=== PATIENT | female | born 1995 | race Caucasian/White ===

== ENCOUNTER 2017-06-04 20:50 | Emergency (ER) | payer SELFPAY ==
[2017-06-04 20:50] VITALS: BMI 33.5
[2017-06-04 21:43] VITALS: BP 107/72
[2017-06-04] MEDS ORDERED: Albuterol-Ipratrop 3 mg / 0.5 (3 ml) UD ONE (22:52)
--- NOTE | 2017-06-04 22:54 | C.PDOC ---
History Of Present Illness 22 year old female presents to the ED complaining of fever, cough, and vomiting , onset yesterday. Patient was seen at the clinic today and given tamiflu. States she developed difficulty breathing today which has worsened, so she came here for further treatment. Patient reports history of asthma but does not have any inhalers at home. Not taking Motrin/Tylenol at home. Of note patient is currently and also has had intermittent abdominal cramping, which is gone now. Denies any vaginal bleeding. Time Seen by Provider: 06/04/17 21:59 Chief Complaint (Nursing): Flu-like Symptoms History Per: Patient, Trapeze Performer (Angely, #[id number]) History/Exam Limitations: no limitations Onset/Duration Of Symptoms: Days (x2) Current Symptoms Are (Timing): Still Present Past Medical History Reviewed: Historical Data, Nursing Documentation, Vital Signs Vital Signs: Last Vital Signs Temp 99.5 F 06/05/17 00:30 Pulse 115 H 06/05/17 00:30 Resp 20 06/05/17 00:30 BP 107/72 06/04/17 21:41 Pulse Ox 98 06/05/17 01:23 - Medical History PMH: Asthma - [facility] Procedures DELIVERY OF PRODUCTS OF CONCEPTION, EXTERNAL APPROACH (03/06/15) REPAIR PERINEUM MUSCLE, OPEN APPROACH (03/06/15) Family History: States: No Known Family Hx - Social History Hx Alcohol Use: No Hx Substance Use: No Review Of Systems Constitutional: Positive for: Fever Respiratory: Positive for: Cough, Shortness of Breath, Wheezing Gastrointestinal: Positive for: Vomiting, Abdominal Pain Genitourinary: Negative for: Vaginal Bleeding Physical Exam - Physical Exam Appears: No Acute Distress Skin: No Rash Head: Atraumatic, Normacephalic Eye(s): bilateral: PERRL, EOMI Oral Mucosa: Moist Throat: Erythema (and tonsillar enlargement), No Exudate Neck: Supple Chest: No Tenderness Cardiovascular: Rhythm Regular Respiratory: Wheezing (bilateral expiratory wheezing), No Other (respiratory distress) Gastrointestinal/Abdominal: Soft, No Tenderness Back: No CVA Tenderness, No Vertebral Tenderness Extremity: No Tenderness, No Pedal Edema Neurological/Psych: Other (Alert, no focal deficits) ED Course And Treatment - Laboratory Results Result Diagrams: 06/04/17 23:30 06/04/17 23:30 O2 Sat by Pulse Oximetry: 98 (RA) Pulse Ox Interpretation: Normal Medical Decision Making Medical Decision Making: Ordered chest x-ray and flu swab. Patient given Tylenol 975 mg and Duoneb treatment. . 11:10 Labs reviewed, flu negative 115 am pt feeling better. potassium given. ?inflitrate in right lower lung; d/ c with albuterol mdi, tylenol. zithromax. Disposition Counseled Patient/Family Regarding: Studies Performed, Diagnosis, Need For Followup, Rx Given - Disposition Referrals: Ny Reynaga MD [Medical Doctor] - Disposition: HOME/ ROUTINE Disposition Time: 01:18 Condition: IMPROVED Additional Instructions: White Tylenol cada 4-6 horas para la fiebre o paul / achaques. Obtener term metro para verificar la temperatura. White Zithromax paige pastilla todos los sheikh corby los prximos 4 sheikh. White Tamiflu jordy prescrbied.Use inhalador 2 bocanadas cada 4-6 horas para respirar con dificultad. tos maegan Regrese a la megan de emergencias por cualquier sntoma peor. Errol un seguimiento con el Dr. Reynaga .Take Tylenol every 4-6 hours for fever or aches/pains. Get thermometer to check temperature. Take Zithromax one pill every day for next 4 days. Take Tamiflu as prescrbied.Use inhaler 2 puffs every 4-6 hours for wheezing. heavy cough. Return to ER for any worse symptoms. Follow up with Dr Reynaga on Thursday. Prescriptions: Acetaminophen [Tylenol 325mg tab] 650 mg PO Q6 #30 tab Albuterol HFA [Ventolin HFA 90 mcg/actuation (8 g)] 2 puff IH Q6 #1 inhaler Azithromycin [Zithromax] 250 mg PO DAILY #4 tab Instructions: Influenza (ED), Acute Bronchitis (ED), Wheezing (ED) Forms: [facility] (Maltese), Gen Discharge Inst Maltese Print Language: DUTCH - Clinical Impression Clinical Impression: Influenza-like illness, Bronchitis - PA / TYPING ELEMENT MACHINE OPERATOR / Resident Statement MD/DO has reviewed & agrees with the documentation as recorded. - Scribe Statement The provider has reviewed the documentation as recorded by the Scribe (Dori Hercules) All medical record entries made by the Scribe were at my direction and personally dictated by me. I have reviewed the chart and agree that the record accurately reflects my personal performance of the history, physical exam, medical decision making, and the department course for this patient. I have also personally directed, reviewed, and agree with the discharge instructions and disposition.
[2017-06-04] MEDS ORDERED: Albuterol-Ipratrop 3 mg / 0.5 (3 ml) UD INH STA (22:57)
[2017-06-04 23:36] LABS: BASO % 0.3 % (0.0-2.0); EOS % 0.1 % (0.0-4.0); HEMOGLOBIN 13.4 g/dL (11.0-16.0); LYMPH % 10.3 % (20.0-40.0); MEAN CELL VOLUME 90.4 fL (81.0-99.0); MEAN CORPUSCULAR HEMOGLOBIN 31.6 pg (27.0-31.0); MEAN CORPUSCULAR HGB CONC 34.9 g/dL (33.0-37.0); MEAN PLATELET VOLUME 9.2 fL (7.2-11.7); MONO # 0.6 K/uL (0.0-0.8); MONO % 5.8 % (0.0-10.0); NEUT # 8.2 K/uL (1.8-7.0); NEUT % 83.5 % (50.0-75.0); RBC 4.26 Mil/uL (3.80-5.20); RED CELL DISTRIBUTION WIDTH 12.9 % (11.5-14.5); WHITE BLOOD COUNT 9.9 K/uL (4.8-10.8)
[2017-06-04 23:39] LABS: SQUAMOUS EPITHIAL 23 /hpf (0-5); URINE BACTERIA RARE (<OCC); URINE BILIRUBIN NEGATIVE (NEGATIVE); URINE BLOOD NEGATIVE (NEGATIVE); URINE CLARITY Hazy (Clear); URINE COLOR Yellow (YELLOW); URINE GLUCOSE (UA) 1+ mg/dL (Normal); URINE LEUKOCYTE ESTERASE 1+ Leu/uL (Negative); URINE NITRATE NEGATIVE (NEGATIVE); URINE PROTEIN 1+ mg/dL (NEGATIVE); URINE UROBILINOGEN NORMAL mg/dL (0.2-1.0)
[2017-06-04 23:45] LABS: ALB/GLOB RATIO 1.1 (1.0-2.1); ALBUMIN 4.2 g/dL (3.5-5.0); ALT/SGPT 18 U/L (9-52); AST/SGOT 20 U/L (14-36); BLOOD UREA NITROGEN 6 mg/dL (7-17); CALCIUM 8.8 mg/dl (8.6-10.4); GFR AFRICAN-AMERICAN > 60; GFR NON-AFRICAN AMERICAN > 60
[2017-06-05 00:30] VITALS: PULSE 115; RESP 20; TEMP 99.5
[2017-06-05] MEDS ORDERED: Albuterol-Ipratrop 3 mg / 0.5 (3 ml) UD INH STA (00:37)
[2017-06-05] MEDS ORDERED: Albuterol-Ipratrop 3 mg / 0.5 (3 ml) UD ONE (00:39)
[2017-06-05 00:56] VITALS: O2SAT 98
[2017-06-05] MEDS ORDERED: Potassium Chloride 20 mEq/15 ml LIQ UD PO STA (00:56)
[2017-06-05] MEDS ORDERED: Potassium Chloride 20 mEq ER Tab PO ONE (01:04)
--- NOTE | 2017-06-05 08:20 | RAD ---
HISTORY: cough, fever COMPARISON: None available. TECHNIQUE: Chest PA and lateral FINDINGS: LUNGS: Patchy opacity at the right lung base consistent with pneumonia. PLEURA: No significant pleural effusion identified. No definite pneumothorax . CARDIOVASCULAR: The cardiomediastinal silhouette appears within normal limits of size. OSSEOUS STRUCTURES: No acute osseous abnormality identified. VISUALIZED UPPER ABDOMEN: Unremarkable. OTHER FINDINGS: None. IMPRESSION: Patchy opacity at the right lung base consistent with pneumonia. Study marked for PA review.
== END 2017-06-05 01:32 | disposition home or self-care (01) ==
LOC: C.ER 20:50
DX: J11.1 Influenza due to unidentified influenza virus with other respiratory manifestations (principal); E87.6 Hypokalemia

== ENCOUNTER 2017-11-05 12:35 | Emergency (ER) | payer MEDICAID, SELFPAY ==
--- NOTE | 2017-11-05 14:13 | OBHP ---
Datetime: 11/05/2017 14:03 IP Adm Impression: Term, intrauterine IP Admit Plan: Discharge home Admit Comment, IP Provider: 36 yo edc 11/18 by 1st trim us presents w/ c/o blood tinged mucosal d/c. States this is how she presented in her last preg when she had srom. No coitus x4mo's. Denies ct xs or decreased movement pnc in [facility] [place] [facility]: x1 pmhx: asthma pshx: denies nkda medic: albuterol tid; pnv i: 38.1wk no evidence of srom Scant dark blood at cervical os mixec w/ mucus p: labor precaut kick counts f/u w/ ob clinic within 1wk f.y w pcp for asthma management Pelvic Type - PN: Adequate Extremities - PN: Normal Abdomen - PN: Normal General - PN: Normal FHR - Baseline A Provider: 120 Membranes, Provider: Intact Comments, ACOG Physical Exam: +Qunatereron Pool Provider: Negative EGA AdmitDate IP: 38.1 Vital Signs Provider: Reviewed; Within Normal Limits IP Chief Complaint: Suspected ruptured membranes; Vaginal bleeding NICHD Variability Prov Fetus A: Moderate 6-25bpm NICHD Accel Fetus A IP Provider: 15X15 FHR Category Provider Fetus A: Category I NICHD Decel Fetus A IP Provider: None Dilatation, Provider: 0 Effacement, Provider: 0 Station, Provider: -3 Genitourinary Exam: Normal
[2017-11-06 13:26] VITALS: BP 108/76; PULSE 76
== END 2017-11-05 14:15 | disposition home or self-care (01) ==
LOC: C.EROB 12:35
DX: O26.893 Other specified pregnancy related conditions, third trimester (principal); Z3A.38 38 weeks gestation of pregnancy

== ENCOUNTER 2017-11-09 10:57 | Inpatient (IN) | payer MEDICAID, SELFPAY ==
--- NOTE | 2017-11-09 15:20 | OBHP ---
Datetime: 11/09/2017 12:50 IP Adm Impression: Term, intrauterine Admit Comment, IP Provider: CC: Contractions and lower abdominal pressure HPI: Patient was 22 year old female at 39.6 weeks with due date by LMP (11/10/17) and LMP d ate of 02/03/17, who presents to labor and delivery with complaint of contractions that started at 6p m last night. Contractions became stronger this morning, 5 minutes apart. Patient admits to mild vagi nal bleeding but denies leakage of fluid, chest pain, palpitations, headache, nauasea, vomiting, leg swelling, fevers or chills. Patient admits to movement. Prime Minister Hx: Menarche: 10 [place]: Regular/ 3-4days Denies hx of fibroid and ovarian cyst Denies hx of STDs and abnormal pap smear OB Hx: G1: Baby Boy, 03/06/2015, vaginal delivery, no complications, 8lbs 8 oz G2: Current, no complications PMHx: Denies PSHx: Denies FHx: denies Medication: vitamins Allergies: tobacco fumes, uses inhaler Social Hx: Lives with and son. Denies current or former use of tobacco, illicit drugs and ETOH VS: BP (100/70) HR: 94 PE: See above A/P: Patient was 22 year old female at 39.6 weeks with due date by LMP (11/10/17) and LMP date o f 02/03/17, who presents to labor and delivery with complaint of contractions: 1. Triage 2. Instructions to walk around for 2 hours and reevaluate cervical exams 3. Further management as per reevalautation of cervical exam Extremities - PN: Normal Abdomen - PN: Normal Lungs - PN: Normal Heart - PN: Normal HEENT - PN: Normal General - PN: Normal Comments, ACOG Physical Exam: Gen: NAD Cardio: RRR, no murmurs Pulm: CTA bilaterally Abdomeb: Soft, gravid Extremities: No edema, no cyanosis and no clubbing EFM: FHR: 120, + accels TOCO: Variable EGA AdmitDate IP: 39.6 IP Chief Complaint: Uterine contractions Dilatation, Provider: 2 Effacement, Provider: 50 Station, Provider: -2
[2017-11-09 15:50] VITALS: BMI 32.1
[2017-11-09] MEDS ORDERED: Lactated Ringer's 1,000 ML IV ONE (16:00)
--- NOTE | 2017-11-09 16:11 | OBADHP ---
Datetime: 11/09/2017 16:02 Admit Comment, IP Provider: Term in actve labor. Spontaneous Rupture of Membranes GBS Negative Unremarkable PNC Will admit for labor and Delivery Pelvic Type - PN: Adequate Extremities - PN: Normal Abdomen - PN: Normal Back - PN: Normal Breast - PN: Not Done Lungs - PN: Normal Heart - PN: Normal Thyroid - PN: Normal Neurologic - PN: Normal HEENT - PN: Normal General - PN: Normal Presentation-Admit: Vertex FHR - Baseline A Provider: 120 Amniotic Fluid Color, Provider: Clear Membranes, Provider: Ruptured Gestation - Est Wks by US: 38.2 Pool Provider: Positive Vital Signs Provider: Reviewed; Within Normal Limits IP Chief Complaint: Uterine contractions; Suspected ruptured membranes NICHD Variability Prov Fetus A: Moderate 6-25bpm NICHD Accel Fetus A IP Provider: 10X10 NICHD Decel Fetus A IP Provider: None Dilatation, Provider: 3-4 Effacement, Provider: 100 Station, Provider: -1 Genitourinary Exam: Normal DTRs - PN: Normal EGA AdmitDate IP: 39.6 IP Adm Impression: Term, intrauterine ; Active labor; Ruptured Membranes IP Admit Plan: Admit to unit; Initiate labor protocol Datetime: 11/09/2017 12:50 Comments, ACOG Physical Exam: Gen: NAD Cardio: RRR, no murmurs Pulm: CTA bilaterally Abdomeb: Soft, gravid Extremities: No edema, no cyanosis and no clubbing EFM: FHR: 120, + accels TOCO: Variable Datetime: 11/05/2017 14:03 FHR Category Provider Fetus A: Category I
[2017-11-09] MEDS ORDERED: Lidocaine Hydrochloride 5 ML INJ ONE (17:22)
[2017-11-09] MEDS ORDERED: Benzocaine/Menthol 20%-0.5% Topical Spray (60 ml) TOP PRN (17:38)
[2017-11-09] MEDS ORDERED: Oxycodone/Acetaminophen 5/325 mg Tab PO PRN (17:38)
--- NOTE | 2017-11-09 18:15 | OBHP ---
Datetime: 11/09/2017 16:02 IP Adm Impression: Term, intrauterine ; Active labor; Ruptured Membranes IP Admit Plan: Admit to unit; Initiate labor protocol Admit Comment, IP Provider: Term in actve labor. Spontaneous Rupture of Membranes GBS Negative Unremarkable PNC Will admit for labor and Delivery Pelvic Type - PN: Adequate Extremities - PN: Normal Abdomen - PN: Normal Back - PN: Normal Breast - PN: Not Done Lungs - PN: Normal Heart - PN: Normal Thyroid - PN: Normal Neurologic - PN: Normal HEENT - PN: Normal General - PN: Normal Presentation-Admit: Vertex FHR - Baseline A Provider: 120 Amniotic Fluid Color, Provider: Clear Membranes, Provider: Ruptured Gestation - Est Wks by US: 38.2 Pool Provider: Positive EGA AdmitDate IP: 39.6 Vital Signs Provider: Reviewed; Within Normal Limits IP Indication for Induction: Not Applicable IP Chief Complaint: Uterine contractions; Suspected ruptured membranes NICHD Variability Prov Fetus A: Moderate 6-25bpm NICHD Accel Fetus A IP Provider: 10X10 NICHD Decel Fetus A IP Provider: None Dilatation, Provider: 3-4 Effacement, Provider: 100 Station, Provider: -1 Genitourinary Exam: Normal DTRs - PN: Normal
[2017-11-09 18:19] LABS: BASO % 0.3 % (0.0-2.0); EOS % 0.4 % (0.0-4.0); HEMOGLOBIN 12.3 g/dL (11.0-16.0); LYMPH # 2.6 K/uL (1.0-4.3); MEAN CELL VOLUME 87.2 fL (81.0-99.0); MEAN CORPUSCULAR HEMOGLOBIN 28.9 pg (27.0-31.0); MEAN CORPUSCULAR HGB CONC 33.2 g/dL (33.0-37.0); MEAN PLATELET VOLUME 11.1 fL (7.2-11.7); MONO # 0.6 K/uL (0.0-0.8); MONO % 5.6 % (0.0-10.0); NEUT % 70.7 % (50.0-75.0); NRBC % 0.1 % (0.0-2.0); RBC 4.26 Mil/uL (3.80-5.20); WHITE BLOOD COUNT 11.4 K/uL (4.8-10.8)
[2017-11-09 18:33] LABS: BLOOD UREA NITROGEN 9 mg/dL (7-17); CALCIUM 8.8 mg/dl (8.6-10.4); GFR AFRICAN-AMERICAN > 60; GFR NON-AFRICAN AMERICAN > 60
--- NOTE | 2017-11-09 19:35 | OBDS ---
DELIVERY PERSONNEL Delivery Doctor: DR BABB Taker Away: Thai Muñoz RN MATERNAL INFORMATION Delivery Anesthesia: Local Estimated Blood Loss (ml): 200 Maternal Complications: None Provider Comments: Patient is a 22 year old delivered a viable female via in a L OA position with a second degree laceration (repaired with 1-0 Vicryl) on 11/09/17 at 17:10pm. The inf ant's head was delivered in a controlled manner. The infant's shoulders were delivered atraumatically . The infant's body was delivered without difficulty. 's mouth and nose were suctioned with syr bj bulb. An intact cord was clamped and cut. Cord blood was collected. Infant was placed on mother' s abdomen. An intact placenta with 3VC was delivered. Uterus firm with massage and IV pitocin. EBL 20 0ml. The weighed 6lbs 11oz with APGARS 9 and 9. Mom and baby are recovering in stable conditio n. All sponges counts and instruments are correct. Dr. Babb was present for the entire delivery. LABOR SUMMARY EDC: 11/10/2017 00:00 No. Babies in Womb: 1 Labor Anesthesia: None LABOR INFORMATION Reason for Induction: Not Applicable Complete Dilatation: 11/09/2017 17:00 Group B Beta Strep: Negative Steroids Given: None Reason Steroids Not Administered: Not Applicable MEMBRANES Membranes Rupture Method: Spontaneous Rupture of Membranes: 11/09/2017 10:00 Length of Rupture (hrs): 7.17 Amniotic Fluid Color: Clear Amniotic Fluid Amount: Scant Amniotic Fluid Odor: Normal STAGES OF LABOR Stage 2 hrs: 0 Stage 2 min: 10 Stage 3 hrs: 0 Stage 3 min: 6 VAGINAL DELIVERY Laceration Extension: Second Degree Laceration Type: Perineal Laceration Repair Note: 1% Lidocaine used to repair Perineal laceration with 2-[address] erile conditions. Pt tolerated the procedure well Initial Vag Sponge Count: 10 Final Vag Sponge Count: 10 Initial Vag Sharps Count: 1 Final Vag Sharps Count: 1 Sponge Count Correct: Yes Sharps Count Correct: Yes BABY A INFORMATION Infant Delivery Date/Time: 11/09/2017 17:10 Method of Delivery: Vaginal Born in Route : No : N/A Forceps: N/A Vacuum Extraction: N/A SHOULDER DYSTOCIA BABY A Delivery Date/Time: 11/09/2017 17:10 PRESENTATION/POSITION BABY A Presentation: Cephalic Cephalic Presentation: Vertex Vertex Position: Right Occipital Posterior PLACENTA INFORMATION BABY A Placenta Delivery Time : 11/09/2017 17:16 Placenta Method of Delivery: Spontaneous Placenta Status: Delivered SCORES BABY A Heart Rate 1 min: >100 bpm Resp Effort 1 min: Good Cry Reflex Irritability 1 min: Cough or Sneeze or Pulls Away Muscle Tone 1 min: Active Motion Color 1 min: Body [place], Extremities Blue SCORE 1 MIN: 9 Heart Rate 5 min: >100 bpm Resp Effort 5 min: Good Cry Reflex Irritability 5 min: Cough or Sneeze or Pulls Away Muscle Tone 5 min: Active Motion Color 5 min: Body [place], Extremities Blue SCORE 5 MIN: 9 INFORMATION BABY A Gestational Age at Delivery: 39.6 Gestational Status: Term Infant Outcome : Liveborn Condition : Stable Infant Sex: Female IDENTIFICATION/MEDS BABY A ID Band Number: [id number] ID Band Location: Left Leg; Left Arm Sensor Applied: Yes Sensor Number: [id number] Sensor Location : Cord Clamp Vitamin K Given : Aquamephyton 1 mg IM; Right Thigh Erythromycin Given: Given Both Eyes WEIGHT/LENGTH BABY A Birthweight (gms): 3045 Infant Weight (lb): 6 Weight (oz): 11 Infant Length Inches: 18.25 Infant Length cms: 46.4 CORD INFORMATION BABY A No. Cord Vessels: 3 Nuchal Cord : N/A Cord Blood Taken: Yes Suction: Mouth; Nose ASSESSMENT BABY A Infant Complications: None Physical Findings at Delivery: Within Normal Limits Infant Respirations: Appears Normal Press Smith Helper/ALS Called : No Transferred To: Remains with Mother
[2017-11-10 08:35] LABS: BASO % 0.4 % (0.0-2.0); EOS % 0.4 % (0.0-4.0); HEMOGLOBIN 11.1 g/dL (11.0-16.0); LYMPH # 2.4 K/uL (1.0-4.3); LYMPH % 21.5 % (20.0-40.0); MEAN CELL VOLUME 87.6 fL (81.0-99.0); MEAN CORPUSCULAR HEMOGLOBIN 29.7 pg (27.0-31.0); MEAN CORPUSCULAR HGB CONC 33.9 g/dL (33.0-37.0); MEAN PLATELET VOLUME 10.8 fL (7.2-11.7); MONO # 0.7 K/uL (0.0-0.8); MONO % 6.3 % (0.0-10.0); NEUT # 7.9 K/uL (1.8-7.0); NEUT % 71.4 % (50.0-75.0); RBC 3.74 Mil/uL (3.80-5.20); RED CELL DISTRIBUTION WIDTH 14.2 % (11.5-14.5); WHITE BLOOD COUNT 11.1 K/uL (4.8-10.8)
--- NOTE | 2017-11-10 10:17 | RAD ---
Date of service: 11/10/2017 HISTORY: positive quantiferon COMPARISON: 06/04/2017 FINDINGS: LUNGS: The prior right basal infiltrate has cleared. No interval pulmonary pathology noted PLEURA: No significant pleural effusion identified, no pneumothorax apparent. CARDIOVASCULAR: Normal. OSSEOUS STRUCTURES: No significant abnormalities. VISUALIZED UPPER ABDOMEN: Normal. OTHER FINDINGS: None. IMPRESSION: The prior right basal infiltrate has cleared. No interval pulmonary pathology noted
[2017-11-10] MEDS: Multiple Vitamins Tab PO SCH (10:19)
--- NOTE | 2017-11-10 15:09 | OBPPN ---
Datetime: 11/10/2017 14:58 PP Pain Prov: Within normal limits PP Nausea Prov: Denies PP Breasts Prov: Not Done PP Heart Prov: Normal PP Lungs Prov: Normal PP Abdomen/Uterus Prov: Normal PP Lochia Prov: Normal PP Vulva/Perineum Prov: Normal PP CVA Tenderness Prov: Normal PP Extremities Prov: Normal PP Progress Prov: Normal PP Impression Prov: Normal progression PP Plan Prov: Continue present management PP Progress Note Prov: PPD #1 No complaints Stable and Satisfactory condition and Recovery Today's H_H 11.1/32.8 Advance care Anticipate Discharge home in AM IP PP Procedures: None
[2017-11-11 01:34] LABS: SQUAMOUS EPITHIAL 5 /hpf (0-5); URINE BILIRUBIN NEGATIVE (NEGATIVE); URINE BLOOD 3+ (NEGATIVE); URINE CLARITY Clear (Clear); URINE COLOR Yellow (YELLOW); URINE GLUCOSE (UA) NORMAL (Normal); URINE LEUKOCYTE ESTERASE 1+ Leu/uL (Negative); URINE PROTEIN NEGATIVE (NEGATIVE); URINE UROBILINOGEN NORMAL mg/dL (0.2-1.0)
[2017-11-11 01:41] LABS: BARBITURATES, UR NEGATIVE (NEGATIVE); BENZODIAZEPINES, UR NEGATIVE (NEGATIVE); OPIATES, UR NEGATIVE (NEGATIVE); PHENCYCLIDINE, UR NEGATIVE (NEGATIVE)
[2017-11-11 08:47] VITALS: BP 109/73; PULSE 75; TEMP 97.2; O2SAT 100
[2017-11-11] MEDS: Multiple Vitamins Tab PO SCH (09:29)
--- NOTE | 2017-11-11 10:24 | OBPPN ---
Datetime: 11/11/2017 10:20 PP Pain Prov: Within normal limits PP Nausea Prov: Denies PP Flatus Prov: Yes PP BM Prov: Yes PP Impression Prov: Normal progression PP Plan Prov: Continue present management PP Progress Note Prov: pt was seen at bed side, pain under control,no n/v, tolerating deit, voiding, min ocha, flatus + ppd#2 s/p dc home no sex motrin prn f/u in [id number] Vital Signs Provider PP: Reviewed; Within Normal Limits
--- NOTE | 2017-11-11 10:26 | OBDCSUM ---
Datetime: 11/11/2017 10:24 Discharged to, Provider: Home Discharge Diagnosis, Provider: Term Delivered Follow up in weeks, Provider: clinic Disch Activity Restrictions: No sexual activity; Nothing in vagina - Doyle, tampons, douche
[2017-11-11 21:41] VITALS: RESP 20
== END 2017-11-11 15:00 | disposition home or self-care (01) | DRG 373 ==
LOC: C.EROB 10:57 → C.4D 15:44 → C.4M 20:05
PROVIDERS: ADMIT Obstetrics & Gynecology; ATTEND Obstetrics & Gynecology
PROC: 10E0XZZ Delivery of Products of Conception, External Approach (ICD-10-PCS; principal; 2017-11-09)
PROC: 0KQM0ZZ Repair Perineum Muscle, Open Approach (ICD-10-PCS; 2017-11-09)
DX: O70.1 Second degree perineal laceration during delivery (principal); Z3A.39 39 weeks gestation of pregnancy; Z37.0 Single live birth